=== PATIENT | female | born 1980 | race Caucasian/White ===

== ENCOUNTER 2022-03-28 18:15 | Emergency (ER) | payer MEDICAID ==
[~2022-03-28] VITALS: Ht 157.5 cm; Wt 56.8 kg
[~2022-03-28 18:15] MED LIST: DIAZ5TAB22 PO
[2022-03-28 19:19] LABS: BASOPHILS # (AUTO) 0.1 X10'3 (0-0.2); BASOPHILS % (AUTO) 0.9 % (0-1); EOSINOPHILS # (AUTO) 0.2 X10'3 (0-0.9); EOSINOPHILS % (AUTO) 1.7 % (0-6); HEMATOCRIT 41.1 % (35.0-45.0); HEMOGLOBIN 14.4 g/dl (12.0-16.0); LYMPHOCYTES # (AUTO) 2.3 X10'3 (1.1-4.8); LYMPHOCYTES % (AUTO) 19.9 % (21-51); MEAN CORPUSCULAR VOLUME 91.4 FL (78-98); MEAN PLATELET VOLUME 8.5 FL (7.4-10.4); MONOCYTES # (AUTO) 0.9 X10'3 (0-0.9); MONOCYTES % (AUTO) 7.4 % (2-12); NEUTROPHILS # (AUTO) 8.2 X10'3 (1.8-7.7); NEUTROPHILS % (AUTO) 70.1 % (42-75); PLATELET COUNT 390 X10'3 (140-440); RED CELL DISTRIBUTION WIDTH 13.1 % (11.5-14.5); WHITE BLOOD COUNT 11.7 X10'3 (4.5-11.0)
[2022-03-28 19:27] LABS: ALANINE AMINOTRANSFERASE 26 U/L (12-78); ALBUMIN 4.1 G/DL (3.4-5.0); ALBUMIN/GLOBULIN RATIO 1.1 (1.1-1.5); ALKALINE PHOSPHATASE 78 IU/L (46-116); ANION GAP 14 (8-16); ASPARTATE AMINO TRANSFERASE 21 U/L (10-37); BILIRUBIN,TOTAL 0.5 MG/DL (0.1-1.0); BLOOD UREA NITROGEN 10 MG/DL (7-18); BUN/CREATININE RATIO 13.5 (6.6-38.0); CALCIUM 8.5 MG/DL (8.5-10.1); CHLORIDE 102 MMOL/L (99-107); CREATININE 0.74 MG/DL (0.40-0.90); GLUCOSE 90 MG/DL (70-104); POTASSIUM 3.5 MMOL/L (3.5-5.1); SODIUM 136 MMOL/L (135-145); TOTAL CARBON DIOXIDE 20.3 MMOL/L (24-32); eGFR 87 ML/MIN
--- NOTE | 2022-03-28 19:29 | NUR ---
Patient transferred to bed 21 from the main ER. She was changed into green scrubs and she gave a urine specimen. She is currently on her menses.
[2022-03-28 19:35] LABS: ETHANOL 0.046 GM/DL (0.0-0.010)
[2022-03-28] MEDS ORDERED: NO HOME MEDS (19:51)
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
--- NOTE | 2022-03-28 20:17 | NUR ---
The patient is resting quietly on her bed
[2022-03-28 20:18] LABS: CLARITY,URINE CLEAR (Clear); COLOR,URINE YELLOW (Yellow); GLUCOSE, URINE NEGATIVE (Neg); KETONES,URINE NEGATIVE (Neg); LEUKOCYTE ESTERASE ,URINE NEGATIVE (Neg); NITRITES, URINE NEGATIVE (Neg); OCCULT BLOOD,URINE SMALL (Neg); PH,URINE 5.5 (4.8-8.0); PROTEIN,URINE NEGATIVE (Neg); UROBILINOGEN,URINE 0.2 E.U/dL (0.2-1.0)
[2022-03-28 20:19] LABS: UA COLLECTION TYPE CLN CATCH MIDSTREAM
[2022-03-28 20:24] LABS: URINE HCG NEGATIVE (NEG)
[2022-03-28 20:30] LABS: URINE AMPHETAMINE SCREEN POSITIVE (Neg); URINE BARBITUATE SCREEN NEGATIVE (Neg); URINE BENZODIAZEPINES SCREEN NEGATIVE (Neg); URINE CANNABINOID SCREEN NEGATIVE (Neg); URINE COCAINE SCREEN NEGATIVE (Neg); URINE METHADONE SCREEN NEGATIVE (Neg); URINE OPIATE SCREEN NEGATIVE (Neg); URINE PHENCYCLIDINE SCREEN NEGATIVE (Neg)
[2022-03-28 20:41] LABS: WBC,URINE 0-4 /HPF (0-4)
[2022-03-28 20:42] LABS: RBC,URINE 0-2 /HPF (0-2); SQUAMOUS EPITHELIAL CELL,UR MANY /LPF (FEW)
[2022-03-28 20:43] LABS: BACTERIA,URINE 3+ /HPF (Neg); WBC CLUMPS,URINE FEW /HPF (NEGATIVE)
--- NOTE | 2022-03-28 21:00 | NUR ---
Packet sent to [facility]
--- NOTE | 2022-03-28 21:30 | NUR ---
The patient appears to be sleeping
--- NOTE | 2022-03-28 22:43 | NUR ---
The patient appears to be sleeping
--- NOTE | 2022-03-29 00:05 | NUR ---
The patient appears to be sleeping
--- NOTE | 2022-03-29 01:11 | NUR ---
The patient appears to be sleeping
--- NOTE | 2022-03-29 04:30 | NUR ---
The patient appears to be sleeping
[2022-03-29 05:23] VITALS: BP 109/71
--- NOTE | 2022-03-29 05:28 | NUR ---
The patient appears to be sleeping
--- NOTE | 2022-03-29 06:48 | NUR ---
Patient sleeping. No distress observed. Continue to monitor.
--- NOTE | 2022-03-29 08:10 | NUR ---
Patient eating breakfast. No distress observed. Continue to monitor.
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
--- NOTE | 2022-03-29 08:35 | NUR ---
Radu CHÁVEZ, evaluating patient. Continue to monitor.
== END 2022-03-29 09:12 | disposition home or self-care (01) ==
LOC: ER 18:15
DX: S60.812A Abrasion of left wrist, initial encounter (principal); Z20.822 Contact with and (suspected) exposure to COVID-19; F15.90 Other stimulant use, unspecified, uncomplicated; R45.6 Violent behavior; J45.909 Unspecified asthma, uncomplicated; F41.9 Anxiety disorder, unspecified; F17.200 Nicotine dependence, unspecified, uncomplicated; Z85.3 Personal history of malignant neoplasm of breast; Z85.41 Personal history of malignant neoplasm of cervix uteri; Z98.890 Other specified postprocedural states; Z72.89 Other problems related to lifestyle; W45.8XXA Other foreign body or object entering through skin, initial encounter; Y93.89 Activity, other specified; Y92.89 Other specified places as the place of occurrence of the external cause; Y99.8 Other external cause status
CPT/HCPCS: 80053; 80305; 80320; 81001; 81025; 84443; 85025; 87811; 99283; 99285